=== PATIENT | male | born 1945 | race Caucasian/White ===

== ENCOUNTER 2025-03-18 17:17 | Emergency (ER) | payer MEDICARE, OTHER ==
[~2025-03-18] VITALS: Ht 167.6 cm; Wt 86.2 kg
[2025-03-18 17:27] VITALS: BP 124/73
[2025-03-18] MEDS: IV NORMAL SALINE 1000 ML BAG IV ONE (18:02)
[2025-03-18 18:19] LABS: PLATELET COUNT (AUTO) 208 K/uL (152-348); RED BLOOD CELL COUNT(AUTO) 4.71 MIL/uL (4.06-5.63); RED CELL DISTRIBUTION WIDTH 13.2 % (12.1-16.2); WHITE BLOOD COUNT (AUTO) 4.6 K/uL (3.6-10.2)
[2025-03-18 18:30] LABS: CREATININE 1.7 mg/dL (0.6-1.3); SODIUM SERUM 134 mmol/L (136-145); UREA NITROGEN, BLOOD 29 mg/dL (7-18)
[2025-03-18 18:45] LABS: ASPARTATE AMINOTRANSFERASE 14 U/L (15-37); TOTAL PROTEIN, SERUM 7.5 g/dL (6.4-8.2)
[2025-03-18 20:49] LABS: *BILIRUBIN,URIN NEGATIVE (NEGATIVE); *BLOOD, URINE 1+ (NEGATIVE); *CLARITY,URINE CLEAR (CLEAR); *COLOR,URINE YELLOW (YELLOW); *KETONES,URINE TRACE (NEGATIVE); *PROTEIN,URINE 1+ (NEGATIVE); *UROBILINOGEN,URINE 0.2 E.U./dl (NORMAL); LEUKOCYTE ESTERASE ,URINE NEGATIVE (NEGATIVE); NITRITE, URINE NEGATIVE (NEGATIVE); UGLUCOSE NEGATIVE (NEGATIVE)
[2025-03-18 21:23] LABS: SQUAMOUS EPITHELIAL CELL,UR FEW /HPF (NONE SEEN)
[2025-03-18 23:24] VITALS: BP 124/73; TEMP 98; O2SAT 98
== END 2025-03-18 22:05 | disposition home or self-care (01) ==
LOC: ER 17:17
DX: R50.9 Fever, unspecified (principal); E78.5 Hyperlipidemia, unspecified; I44.4 Left anterior fascicular block; J45.909 Unspecified asthma, uncomplicated; Z20.822 Contact with and (suspected) exposure to COVID-19; Z86.2 Personal history of diseases of the blood and blood-forming organs and certain disorders involving the immune mechanism
CPT/HCPCS: 99285; 96360; 71045; 96361; 87426; 87804 ×2; 80076; 80048; 81001; 85025; 84145; 85730; 87040 ×2; 87086; 36415; 93005; 83605; J7040; A4606; A4663